=== PATIENT | female | born 1975 | race Caucasian/White ===

== ENCOUNTER 2017-02-13 21:43 | Emergency (ER) | payer MEDICAID ==
[~2017-02-13] VITALS: Wt 72.0 kg
--- NOTE | 2017-02-13 23:33 | ERA ---
ER Documentation Chief Complaint Date/Time DATE: 02/13/17 TIME: 23:33 Chief Complaint Epigastric abdominal pain HPI The patient is a 41-year-old female, presenting with epigastric abdominal pain radiating to the sternal area that began about 3 PM, she had similar symptoms previously, vomited mostly mucus after eating, complains of dysuria. She denies fever, chills, neck pain, chest pain with exertion/vomiting/diaphoresis. She does not smoke nor drink Past medical history: GERD, gastritis, diabetes mellitus, dyslipidemia Past surgical history: None ROS All systems reviewed and are negative except as per history of present illness. Allergies Allergies: Coded Allergies: No Known Drug Allergies (Verified Allergy, Unknown, 02/13/17) Physical Exam Vitals Vital Signs Date Time Temp Pulse Resp B/P Pulse Ox O2 Delivery O2 Flow Rate FiO2 02/13/17 23:30 97.7 66 16 109/65 98 Room Air 02/13/17 21:48 97.7 59 16 108/67 99 Physical Exam Const: No acute distress. Head: Atraumatic. Eyes: Normal Conjunctiva. ENT: Normal External Ears, Nose and Mouth. Neck: Full range of motion. No meningismus. Resp: Clear to auscultation bilaterally. Cardio: Regular rate and rhythm. Abd: Soft, non distended, normal bowel sounds, Mild epigastric discomfort, no right lower quadrant, right upper quadrant, rigidity, rebound, CVA tenderness. Skin: No petechiae or rashes. Back: No midline or flank tenderness. Ext: No cyanosis, or edema. Neur: Awake and alert. No focal deficit Psych: Normal Mood and Affect. Result Diagram: 02/13/17 2345 02/13/17 2345 Results 24 hrs Laboratory Tests Test 02/13/17 22:13 02/13/17 23:45 02/14/17 00:04 Bedside Glucose 184mg/dL White Blood Count 7.510^3/ul Red Blood Count 4.2310^6/ul Hemoglobin 13.5g/dl Hematocrit 38.8% Mean Corpuscular Volume 91.7fl Mean Corpuscular Hemoglobin 31.9pg Mean Corpuscular Hemoglobin Concent 34.8g/dl Red Cell Distribution Width 12.0% Platelet Count 76150^3/UL Mean Platelet Volume 10.4fl Neutrophils % 64.2% Lymphocytes % 29.4% Monocytes % 4.8% Eosinophils % 0.8% Basophils % 0.7% Nucleated Red Blood Cells % 0.0/100WBC Neutrophils # 4.810^3/ul Lymphocytes # 2.210^3/ul Monocytes # 0.410^3/ul Eosinophils # 0.110^3/ul Basophils # 0.110^3/ul Nucleated Red Blood Cells # 0.010^3/ul Sodium Level 138mmol/L Potassium Level 4.0mmol/L Chloride Level 107mmol/L Carbon Dioxide Level 24mmol/L Anion Gap 11 Blood Urea Nitrogen 17mg/dl Creatinine 0.42mg/dl Glucose Level 169mg/dl Calcium Level 9.2mg/dl Total Bilirubin 0.4mg/dl Direct Bilirubin 0.00mg/dl Indirect Bilirubin 0.4mg/dl Aspartate Amino Transf (AST/SGOT) 27IU/L Alanine Aminotransferase (ALT/SGPT) 41IU/L Alkaline Phosphatase 123IU/L Troponin I < 0.012ng/ml Total Protein 7.1g/dl Albumin 4.0g/dl Globulin 3.10g/dl Albumin/Globulin Ratio 1.29 Lipase 188U/L Bedside Urine pH (LAB) 5.5 Bedside Urine Protein (LAB) Negative Bedside Urine Glucose (UA) Negative Bedside Urine Ketones (LAB) Negative Bedside Urine Blood Negative Bedside Urine Nitrite (LAB) Negative Bedside Urine Leukocyte Esterase (L Trace Current Medications Medications (Trade) Dose Ordered Sig/Jennifer Route PRN Reason Start Time Stop Time Status Last Admin Dose Admin Pantoprazole (Protonix Tab) 40 mg ONCE ONCE PO 02/14/17 00:30 02/14/17 00:31 DC Procedures/[place] [address] Radiology Main Line: [phone] DIAGNOSTIC IMAGING REPORT Patient: RONIT MCKEON : 1975 Age: 41 Sex: F MR #: [id number] DOS: 02/13/17 2352 Ordering MD: JOSIANE CORREA MD Location: E/R Room/Bed: PROCEDURE: XR Chest. CLINICAL INDICATION: Chest pain. TECHNIQUE: AP Portable chest. COMPARISON: No pertinent prior examinations were submitted for comparison. FINDINGS: The cardiomediastinal silhouette is normal. The lungs are clear. The osseous structures are unremarkable. IMPRESSION: No acute findings. RPTAT: HIKT .Kwan Stovall MD, MD Date Time Electronically viewed and signed by .Kwan Stovall MD, on 02/14/2017 00:54 .T/ CC: JOSIANE CORREA MD EK hrs. Read by emergency physician Rate/Rhythm: Sinus bradycardia 55 beats/min QRS, ST, T-waves: No ST elevation, no T inversion Impression: Abnormal EKG EK hrs. Read by emergency physician Rate/Rhythm: Normal sinus rhythm 71 beats/min QRS, ST, T-waves: No ST elevation, no T inversion Impression: Normal EKG MEDICAL MAKING DECISION: The patient is a 41-year-old female, presenting with epigastric abdominal pain, most likely due to her chronic GERD and gastritis. She was treated with Protonix 40 mg p.o. with good response. She has been stable emergency department and did not have any recurrent symptoms. The differential diagnoses considered include but are not limited to acute coronary syndrome, acute myocardial infarction, pericarditis, pulmonary embolism , aortic dissection, pneumonia, pleural effusion, pneumothorax, GERD, chest wall pain. Departure Diagnosis: Primary Impression: Epigastric abdominal pain Condition: Good Comments She was discharged with Protonix I discussed the findings with the patient. I advised the patient to follow-up with the primary physician in about 1-2 days, sooner if needed and return if any concern. JOSIANE CORREA MD Feb 13, 2017 23:33
[2017-02-13 23:57] LABS: URINE BLOOD (Dip) POC Negative (NEGATIVE)
[2017-02-14 00:21] LABS: BASOPHIL # 0.1 10^3/ul (0.0-0.1); BASOPHILS % 0.7 % (0.0-2.0); EOSINOPHILS # 0.1 10^3/ul (0.0-0.5); EOSINOPHILS % 0.8 % (0.0-7.0); HEMATOCRIT 38.8 % (37.0-47.0); HEMOGLOBIN 13.5 g/dl (12.0-16.0); LYMPHOCYTES # 2.2 10^3/ul (0.8-2.9); LYMPHOCYTES % 29.4 % (15.0-51.0); MEAN CORPUSCULAR HEMOGLOBIN 31.9 pg (29.0-33.0); MEAN CORPUSCULAR HGB CONC 34.8 g/dl (32.0-37.0); MEAN CORPUSCULAR VOLUME 91.7 fl (82.0-101.0); MEAN PLATELET VOLUME 10.4 fl (7.4-10.4); MONOCYTE # 0.4 10^3/ul (0.3-0.9); MONOCYTES % 4.8 % (0.0-11.0); NEUTROPHIL # 4.8 10^3/ul (1.6-7.5); NEUTROPHILS % 64.2 % (39.0-77.0); PLATELET COUNT 183 10^3/UL (140-415); RED BLOOD COUNT 4.23 10^6/ul (4.20-5.40); WHITE BLOOD COUNT 7.5 10^3/ul (4.8-10.8)
[2017-02-14] MEDS ORDERED: PANTOPRAZOLE (EC) 40 MG TAB PO ONE (00:30)
[2017-02-14 00:38] LABS: ALANINE AMINOTRANSFERASE 41 IU/L (13-69); ALBUMIN/GLOBULIN RATIO 1.29; ALKALINE PHOSPHATASE 123 IU/L (42-121); ANION GAP 11 (8-16); ASPARTATE AMINO TRANSFERASE 27 IU/L (15-46); BILIRUBIN,INDIRECT 0.4 mg/dl (0-1.1); BILIRUBIN,TOTAL 0.4 mg/dl (0.2-1.3); BLOOD UREA NITROGEN 17 mg/dl (7-20); CALCIUM 9.2 mg/dl (8.4-10.2); CARBON DIOXIDE 24 mmol/L (21-31); CHLORIDE 107 mmol/L (97-110); CREATININE 0.42 mg/dl (0.44-1.00); GLUCOSE 169 mg/dl (70-220); SODIUM 138 mmol/L (135-144); TOTAL PROTEIN 7.1 g/dl (6.1-8.1)
--- NOTE | 2017-02-14 00:54 | RADRPT ---
PROCEDURE: XR Chest. CLINICAL INDICATION: Chest pain. TECHNIQUE: AP Portable chest. COMPARISON: No pertinent prior examinations were submitted for comparison. FINDINGS: The cardiomediastinal silhouette is normal. The lungs are clear. The osseous structures are unrema rkable. IMPRESSION: No acute findings. RPTAT: HIKT .Kwan Stovall MD, MD Date Time Electronically viewed and signed by .Kwan Stovall MD, MD on 02/14/2017 00:54 .T/
[2017-02-14 01:02] LABS: TROPONIN-I < 0.012 ng/ml (0.00-0.12)
[2017-02-14 02:39] VITALS: BP 101/68; PULSE 73; RESP 16; TEMP 97.7
== END 2017-02-14 01:43 | disposition home or self-care (01) ==
LOC: E/R 21:43
DX: R10.13 Epigastric pain (principal); E11.9 Type 2 diabetes mellitus without complications
CPT/HCPCS: 36415; 71010; 80053; 81003; 82962; 83690; 84484; 85025; Z7502; Z7610; 93005

== ENCOUNTER 2017-11-06 21:00 | Emergency (ER) | END 2017-11-07 02:20 | disposition home or self-care (01) ==